=== PATIENT | female | born 1970 | race Caucasian/White ===

== ENCOUNTER 2016-11-25 10:42 | Emergency (ER) | payer OTHER ==
[~2016-11-25] VITALS: Ht 172.7 cm; Wt 68.2 kg
[2016-11-25 10:43] VITALS: BP 110/62
[2016-11-25] MEDS ORDERED: ALEV220C2 PO (10:55)
[2016-11-25] MEDS ORDERED: ADACEL/BOOSTRIX VACCINE (DIPHTH/PERTUSS/ACELL/TETANUS)0.5ML SYR (90715) IM ONE (11:45)
[2016-11-25] MEDS ORDERED: DERMABOND TOPICAL SKIN ADHESIVE TOP ONE (11:45)
[2016-11-25] MEDS ORDERED: KEFL500C17 PO (11:47)
== END 2016-11-25 12:14 | disposition home or self-care (01) ==
LOC: M ED 10:42
DX: S61.411A Laceration without foreign body of right hand, initial encounter (principal); W26.8XXA Contact with other sharp object(s), not elsewhere classified, initial encounter; Y92.019 Unspecified place in single-family (private) house as the place of occurrence of the external cause; Y93.89 Activity, other specified; Y99.8 Other external cause status

== ENCOUNTER 2021-10-15 08:39 | Emergency (ER) | payer OTHER ==
[~2021-10-15] VITALS: Ht 172.7 cm; Wt 69.5 kg
[~2021-10-15 08:39] MED LIST: ALEV220C2 PO; KEFL500C17 PO
[2021-10-15] MEDS ORDERED: KETOROLAC 30 MG/ML 1ML VIAL IV ONE (09:10)
[2021-10-15] MEDS ORDERED: GI COCKTAIL 50ML BTL(HYOSCYAMINE/MAALOX/LIDOCAINE VISCOUS)(1:3:1) PO ONE (09:10)
[2021-10-15 09:40] LABS: BASO % 0.9 % (0.0-1.0); HEMATOCRIT 38.2 % (36.0-47.0); HEMOGLOBIN 12.3 g/dl (12.0-15.5); LYMPH # 0.3 10^3/uL (1.5-5.0); LYMPH % 8.3 % (24.0-44.0); MEAN CORPUSCULAR HEMOGLOBIN 31.1 pg (27.0-33.0); MEAN CORPUSCULAR HGB CONC 32.2 g/dl (32.0-36.5); MEAN CORPUSCULAR VOLUME 96.5 fl (80.0-96.0); MONO # 0.2 10^3/uL (0.0-0.8); MONO % 4.9 % (2.0-8.0); NEUTROPHILS # 2.8 10^3/uL (1.5-8.5); NEUTROPHILS % 85.6 % (36.0-66.0); PLATELET COUNT, AUTOMATED 132 10^3/uL (150-450); RED BLOOD COUNT 3.96 10^6/uL (4.00-5.40); WHITE BLOOD COUNT 3.2 10^3/uL (4.0-10.0)
[2021-10-15 09:48] LABS: PROTHROMBIN TIME 12.6 SECONDS (12.7-14.5)
[2021-10-15 09:49] LABS: PARTIAL THROMBOPLASTIN TIME 26.8 SECONDS (25.9-37.0)
[2021-10-15 10:08] LABS: D-DIMER QUANT > 4000 ng/ml (<500)
[2021-10-15 10:09] LABS: CK-MB VALUE MASS < 1.0 NG/ML (<3.6); CPK CREATINE PHOSPHOKINASE 48 U/L (26-192); MB/CK RELATIVE INDEX 2.08 (< OR =4)
[2021-10-15 10:17] LABS: ALBUMIN 3.7 GM/DL (3.2-5.2); ALT/SGPT 37 U/L (12-78); BILIRUBIN,DIRECT 0.1 MG/DL (0.0-0.2); BILIRUBIN,TOTAL 0.5 MG/DL (0.2-1.0); BLOOD UREA NITROGEN 9 MG/DL (7-18); CALCIUM LEVEL 8.9 MG/DL (8.5-10.1); CARBON DIOXIDE LEVEL 26 MEQ/L (21-32); CHLORIDE LEVEL 107 MEQ/L (98-107); CREATININE FOR GFR 0.71 MG/DL (0.55-1.30); GLOMERULAR FILTRATION RATE > 60.0 (>51); GLUCOSE, FASTING 106 MG/DL (70-100); LIPASE 65 U/L (73-393); NT-PRO BNP 504 PG/ML (<125); POTASSIUM SERUM 4.5 MEQ/L (3.5-5.1); SODIUM LEVEL 139 MEQ/L (136-145); TOTAL PROTEIN 6.4 GM/DL (6.4-8.2)
[2021-10-15 10:59] LABS: CK-MB VALUE MASS < 1.0 NG/ML (<3.6); CPK CREATINE PHOSPHOKINASE 36 U/L (26-192); MB/CK RELATIVE INDEX 2.78 (< OR =4)
[2021-10-15] MEDS ORDERED: ISOVUE-370 76% 100ML VIAL As Ordered ONE (11:24)
[2021-10-15] MEDS ORDERED: OMEP40CA4 PO (12:56)
[2021-10-15] MEDS ORDERED: SUCR1TA PO (12:56)
[2021-10-15 13:27] VITALS: BP 128/82
== END 2021-10-15 13:40 | disposition home or self-care (01) ==
LOC: M ED 08:39
DX: R07.89 Other chest pain (principal); Y93.H2 Activity, gardening and landscaping; X50.0XXA Overexertion from strenuous movement or load, initial encounter
CPT/HCPCS: 71045; 71275; 80047; 80048; 80076; 82550; 82553; 83690; 83880; 84443; 84484; 85025; 85379; 85610; 85730; 86618; 93005; 93041; 94760; 96374; 99285; J1885; Q9967